=== PATIENT | male | born 1990 | race Caucasian/White ===

== ENCOUNTER 2017-03-05 16:06 | Emergency (ER) | payer OTHER ==
[~2017-03-05] VITALS: Ht 172.7 cm; Wt 84.0 kg
[~2017-03-05 16:06] MED LIST: RASPBERRY SYRUP 5 ML UDP PO SCH; VANCOMYCIN HCL 125 MG/2.5ML SOLN PO SCH
[2017-03-05 16:09] VITALS: TEMP 36.8; Ht 172.7 cm; Wt 84.0 kg
[2017-03-05] MEDS ORDERED: SODIUM CHLORIDE 0.9% 1000ML 1,000 ML IV STA ×2 (16:27→18:14)
[2017-03-05] MEDS ORDERED: OPTIRAY 320 IV PRN (16:30)
[2017-03-05] MEDS ORDERED: IBUP-103 PO (16:35)
[2017-03-05 17:04] LABS: BASO % 0.2 %; BASO ABS # 0.03 K/uL (0-0.2); COMPLETE YES; EOS % 0.8 %; HEMATOCRIT 49.7 % (42-52); IG% 0.6 %; LYMPH % 11.6 %; LYMPH ABS # 2.19 K/uL (1.2-3.4); MEAN CELL VOLUME 88.3 fL (80-100); MEAN CORPUSCULAR HEMOGLOBIN 31.4 pg (25-34); MEAN CORPUSCULAR HGB CONC 35.6 g/dl (32-36); MONO % 6.6 %; NEUT % 80.2 %; PLATELET COUNT 410 K/uL (130-400); RED BLOOD COUNT 5.63 M/uL (4.7-6.1)
[2017-03-05 17:22] LABS: BUN/CREATININE RATIO 6.8 (10-20); CREATININE 0.99 mg/dl (0.60-1.40); MAGNESIUM 2.3 mg/dl (1.8-2.4); POTASSIUM 3.7 mmol/L (3.5-5.1)
[2017-03-05] MEDS ORDERED: MoRPHine SULFATE 4 MG/ML 1 ML CARP\\VIAL IV STA (18:55)
[2017-03-05] MEDS ORDERED: ONDANSETRON INJ 2 MG/ML 2 ML VIAL IV STA (18:55)
--- NOTE | 2017-03-05 19:12 | DIAGNOSTIC IMAGING REPORT ---
ABDOMEN AND PELVIS CT WITH IV AND ORAL CONTRAST CT DOSE: 478.47 mGy.cm HISTORY: Right lower quadrant abdominal pain TECHNIQUE: Multiaxial CT images of the abdomen and pelvis were performed following the use of intravenous and oral contrast. COMPARISON STUDY: None. FINDINGS: The lung bases are clear. No fractures within the visualized osseous structures. No pneumoperitoneum. No pneumatosis. The liver, gallbladder, spleen, adrenal glands, pancreas, and kidneys are unremarkable. No retroperitoneal lymphadenopathy. Normal bladder. There is diffuse moderate thickening of the entire colon and rectum. There is associated mild pericolonic fat stranding. Normal appendix measuring 6 mm in diameter. No evidence for bowel obstruction. IMPRESSION: 1. Diffuse moderate thickening of the colon and rectum with associated pericolonic fat stranding. This is consistent with a nonspecific pancolitis likely due to an infectious or inflammatory process. 2. No evidence for bowel obstruction. 3. No evidence for acute appendicitis. Electronically signed by: Lon Redman M.D. 03/05/2017 7:11 PM Dictated Date/Time: 03/05/2017 7:06 PM
--- NOTE | 2017-03-05 21:06 | EMERGENCY ROOM VISIT NOTE ---
History First contact with patient: 16:12 Chief Complaint: CONSTIPATION Stated Complaint: CONSTIPATION 2 WEEKS, ABDOMINAL PAIN Nursing Triage Summary: see triage note History of Present Illness The patient is a 26 year old male who presents to the Emergency Room via private vehicle accompanied by sister with complaints of "constipation". The patient states that he has had regular bowel movements over the past 1-2 weeks. He states that he has had diarrhea, but still feels constipated. There is been associated nausea and abdominal pain. He states that he was seen today by [employer] [employer], who sent him here for further evaluation and management. The patient states that last night, he ate pizza and then fell constipated, noting that he felt a pain in the left lower quadrant. He states that he has felt this since he had his was obtained removed. He been taking pain medication , as well as amoxicillin. He has taken amoxicillin for approximately 3-4 weeks. He finished his last dose last week. He notes that each bowel movement yields a minimal amount, and most of it is diarrhea. Once the left lower quadrant noting the pain is 3-4/10. Movement makes the pain worse, but if he sits down it often will go away. His pain was an 8-9/10 earlier today. There is associated nausea. A minimal blood in the stool. He denies any chest pain, shortness of breath, vomiting. Review of Systems A complete 10-point Review of Systems was discussed with the patient, with pertinent positives and negatives listed in the History of Present Illness. All remaining Review of Systems questions can be considered negative unless otherwise specified. Past Medical/Surgical History [place] teeth removal Family History Heart disease, high blood pressure, cancer Social History Smoking Status: Current Every Day Smoker Social History: Patient lives at home with mother. Current/Historical Medications Scheduled Ibuprofen Tab (Advil), 200-600 MG PO Q4H Vancomycin HCl (Vancomycin HCl), 125 MG PO Q6 Allergies Coded Allergies: No Known Allergies (Unverified , 03/05/17) Physical Exam Vital Signs Date Time Temp Pulse Resp B/P Pulse Ox O2 Delivery O2 Flow Rate FiO2 03/05/17 21:46 100 18 163/81 98 Room Air 03/05/17 19:12 98 18 144/83 98 Room Air 03/05/17 16:09 36.8 123 16 128/86 95 Room Air Physical Exam VITAL SIGNS - Vital signs and nursing notes were reviewed. Patient is afebrile , normotensive, tachycardic at a rate of 123 bpm, and is saturating on room air 95%. GENERAL -26-year-old male appearing his stated age who is in no acute distress. Communicates well with provider and answers questions appropriately. SKIN - Without rashes. No petechial rashes. HEAD - NC/AT. EYES - Sclera anicteric. Palpebral conjunctiva pink and moist with no injection noted. MOUTH/OROPHARYNX - Without perioral cyanosis. LUNGS - Chest wall symmetric without accessory muscle use, intercostals retractions, or central cyanosis. Normal vesicular breath sounds CTA B/L. No wheezes, rales, or rhonchi appreciated. CARDIAC - RRR with S1/S2. No murmur, rubs, or gallops appreciated. ABDOMEN - Abdominal contour without pulsations or visible masses. BS normoactive all four quadrants. No tenderness, palpable masses, hepatosplenomegaly, or ascites noted. EXTREMITIES - No clubbing or peripheral cyanosis. No pretibial edema present. +5 /5 strength noted in UE/LE bilaterally. NEUROLOGIC - Cranial nerves II through XII grossly intact. Patellar reflexes +2/ 4. PSYCH - Pt is very pleasant and interacts well with examiner. Medical Decision & Procedures ER Provider Diagnostic Interpretation: ABDOMEN AND PELVIS CT WITH IV AND ORAL CONTRAST CT DOSE: 478.47 mGy.cm HISTORY: Right lower quadrant abdominal pain TECHNIQUE: Multiaxial CT images of the abdomen and pelvis were performed following the use of intravenous and oral contrast. COMPARISON STUDY: None. FINDINGS: The lung bases are clear. No fractures within the visualized osseous structures. No pneumoperitoneum. No pneumatosis. The liver, gallbladder, spleen, adrenal glands, pancreas, and kidneys are unremarkable. No retroperitoneal lymphadenopathy. Normal bladder. There is diffuse moderate thickening of the entire colon and rectum. There is associated mild pericolonic fat stranding. Normal appendix measuring 6 mm in diameter. No evidence for bowel obstruction. IMPRESSION: 1. Diffuse moderate thickening of the colon and rectum with associated pericolonic fat stranding. This is consistent with a nonspecific pancolitis likely due to an infectious or inflammatory process. 2. No evidence for bowel obstruction. 3. No evidence for acute appendicitis. Electronically signed by: Lon Redman M.D. 03/05/2017 7:11 PM Dictated Date/Time: 03/05/2017 7:06 PM Laboratory Results 03/05/17 16:50 Red Blood Count 5.63, Mean Corpuscular Volume 88.3, Mean Corpuscular Hemoglobin 31.4, Mean Corpuscular Hemoglobin Concent 35.6, Mean Platelet Volume 9.0, Neutrophils (%) (Auto) 80.2, Lymphocytes (%) (Auto) 11.6, Monocytes (%) (Auto) 6.6, Eosinophils (%) (Auto) 0.8, Basophils (%) (Auto) 0.2, Neutrophils # (Auto) 15.15, Lymphocytes # (Auto) 2.19, Monocytes # (Auto) 1.25, Eosinophils # (Auto) 0.16, Basophils # (Auto) 0.03 03/05/17 16:50 Test 03/05/17 16:50 03/05/17 18:30 03/05/17 21:42 White Blood Count 18.90 K/uL (4.8-10.8) Red Blood Count 5.63 M/uL (4.7-6.1) Hemoglobin 17.7 g/dL (14.0-18.0) Hematocrit 49.7 % (42-52) Mean Corpuscular Volume 88.3 fL (80-100) Mean Corpuscular Hemoglobin 31.4 pg (25-34) Mean Corpuscular Hemoglobin Concent 35.6 g/dl (32-36) Platelet Count 410 K/uL (130-400) Mean Platelet Volume 9.0 fL (7.4-10.4) Neutrophils (%) (Auto) 80.2 % Lymphocytes (%) (Auto) 11.6 % Monocytes (%) (Auto) 6.6 % Eosinophils (%) (Auto) 0.8 % Basophils (%) (Auto) 0.2 % Neutrophils # (Auto) 15.15 K/uL (1.4-6.5) Lymphocytes # (Auto) 2.19 K/uL (1.2-3.4) Monocytes # (Auto) 1.25 K/uL (0.11-0.59) Eosinophils # (Auto) 0.16 K/uL (0-0.5) Basophils # (Auto) 0.03 K/uL (0-0.2) RDW Standard Deviation 43.1 fL (36.4-46.3) RDW Coefficient of Variation 13.3 % (11.5-14.5) Immature Granulocyte % (Auto) 0.6 % Immature Granulocyte # (Auto) 0.12 K/uL (0.00-0.02) Anion Gap 6.0 mmol/L (3-11) Est Creatinine Clear Calc Drug Dose 120.4 ml/min Estimated GFR () 122.2 Estimated GFR (Non- 105.4 BUN/Creatinine Ratio 6.8 (10-20) Calcium Level 9.0 mg/dl (8.5-10.1) Magnesium Level 2.3 mg/dl (1.8-2.4) Total Bilirubin 0.4 mg/dl (0.2-1) Aspartate Amino Transf (AST/SGOT) 9 U/L (15-37) Alanine Aminotransferase (ALT/SGPT) 19 U/L (12-78) Alkaline Phosphatase 87 U/L (45-117) Total Protein 7.3 gm/dl (6.4-8.2) Albumin 3.6 gm/dl (3.4-5.0) Globulin 3.7 gm/dl (2.5-4.0) Albumin/Globulin Ratio 1.0 (0.9-2) Lipase 89 U/L (73-393) Date/Time Source Procedure Growth Status 03/05/17 18:30 Stool C.difficile Toxin B Gene (PCR) - Final Positive for C. difficile toxin B gene Complete Medications Administered Medications (Trade) Dose Ordered Sig/Jesus Route Start Time Stop Time Status Last Admin Dose Admin Sodium Chloride 1,000 ml @ 999 mls/hr Q1H1M STAT IV 03/05/17 16:27 03/05/17 17:27 DC 03/05/17 16:46 999 MLS/HR Sodium Chloride (Nss 1000ml) 1,000 ml @ 200 mls/hr Q5H STAT IV 03/05/17 18:14 03/05/17 23:13 03/05/17 18:14 200 MLS/HR Morphine Sulfate (MoRPHine SULFATE INJ) 4 mg NOW STAT IV 03/05/17 18:55 03/05/17 18:56 DC 03/05/17 19:17 4 MG Ondansetron HCl (Zofran Inj) 4 mg NOW STAT IV 03/05/17 18:55 03/05/17 18:56 DC 03/05/17 19:17 4 MG Medical Decision Patient was seen and evaluated as above. He presents to us after taking a long duration of amoxicillin, with abdominal pain and diarrhea. Subjective and objective examination is concerning for C. difficile. IV access was initiated, and the above workup was performed. He was hydrated with 1 L normal saline bolus. His tachycardia persisted, but his rate did improve to rate around 100. There is leukocytosis around 18,000. No anemia. Patient declined rectal exam. Platelet count is high at 410. Sodium and potassium are within normal limits. Chloride is high at 108. AST is low at 9. C. difficile toxin B Gene is positive. Stool does smell consistent with that of C. difficile. CT scan was obtained secondary to the patient's amount of pain. Pancolitis noted. He was hydrated with 1 more liter of saline. Thus far he has been nothing by mouth. He was given 4 mg of morphine and 4 mg of Zofran for his pain. I did discuss the case with my attending, and there is concern that the patient has not done well with by mouth intake despite his attempts. Patient has attempted to drink a large amount of water but still appears dehydrated with his vital signs, and during his stay he has had use the bathroom for 5 times. I am concerned that his water loss . Diarrhea is greater than that of by mouth intake. For this reason, hospitalist was consult, who will further evaluate the patient for management. Please refer to further documentation regarding his stay. I was notified by the hospitalist that the patient verbalized he would like to go home. The patient states that family is coming in this weekend, and he is feeling better. I informed him that this is a serious diagnosis, and could lead to . He verbalizes understanding, and will be discharged home with vancomycin oral solution. He'll be given the first dose here, which is 125 mg of oral vancomycin solution followed by 500 mg home pack. A prescription for the remainder was sent to the pharmacy for a total of 10 days. He is to return with worsening. He was educated upon worrisome symptoms which to return, had questions prior to discharge, and was discharged home in good condition with his sister. In evaluation treatment this patient the following differential diagnoses entertained: Diverticulitis, C. difficile, appendicitis, IBS, among others. Impression Primary Impression: C. difficile colitis Departure Information Dispostion Home / Self-Care Condition GOOD Prescriptions Vancomycin HCl (Vancomycin HCl) 125 Mg/2.5 Ml Susp 125 MG PO Q6, #90 ML Prov: Devon Ceja PA-C 03/05/17 Referrals No Doctor, Assigned (PCP) Patient Instructions Clostridium Difficile Infec, My [facility] Additional Instructions You have been treated in the Emergency Department your Abdominal Pain and were found to have C. difficile associated diarrhea. This is a serious, potentially life-threatening infection of your GI tract system which will require strong antibiotics. For this reason you have been prescribed vancomycin, 125 mg by mouth every 6 hours for 10 days. You will be given the first dose here, and sent home with the first 24 hour supply. The remainder is in written prescription form which will need to be filled at a pharmacy of your choice. Please keep in mind that one extra dose was provided with the prescription sent to the pharmacy. The full 10 days should actually be with one dose left in the prescription bottle. It is recommended that you take probiotic yogurt to help colonize your GI tract. For pain control, you can use the following [id number] medicines (if >12 yo): - Regular strength (325mg/tab) Tylenol (acetaminophen) 2 tabs every 4-6 hours as needed. Do not exceed 12 tablets in a 24 hour period. Avoid taking more than 4 grams (4000 mg) of Tylenol per day. This includes any other sources of acetaminophen you may take on a regular basis. - Regular strength (200 mg/tab) Advil (ibuprofen) 1-2 tabs every 4-6 hours as needed. Do not exceed a dose of 3200 mg per day. Drink plenty of water and stay well hydrated. As with any trip to the Emergency Department, you should follow-up with your Primary Care Provider from today's visit. Return to the emergency department if your symptoms persist despite treatment plan outlined above or if the following symptoms occur: increased fevers, chills , worsening nausea/vomiting, blood in your stool or urine. Please return to the emergency department with any new/concerning symptoms.
[2017-03-05] MEDS ORDERED: NSS + 20MEQ KCL 1000ML 1,000 ML IV SCH (21:45)
[2017-03-05] MEDS ORDERED: VANCOMYCIN HCL 125 MG/2.5ML SOLN PO STA ×2 (22:02)
[2017-03-05] MEDS ORDERED: VNCSEMP PO (22:11)
[2017-03-05] MEDS ORDERED: ONDANSETRON HOME PACK 4MG OD TAB PO STA (22:14)
[2017-03-05] MEDS ORDERED: VANCOMYCIN HCL 125 MG/2.5ML SOLN PO ONE (22:15)
[2017-03-05] MEDS ORDERED: RASPBERRY SYRUP 5 ML UDP PO ONE (22:15)
--- NOTE | 2017-03-05 22:30 | History and Physical ---
History & Physical Date & Time of Service: March 05, 2017 at 21:57 Chief Complaint: Constipation 2 Weeks, Abdominal Pain Primary Care Physician: No Doctor, Assigned History of Present Illness Source: patient, family, hospital records 26 year old male with no known past medical history presenting with diarrhea Patient report at least 2 weeks of Amoxicillin early February for infected tooth. He was feeling well until yesterday when he started to have generalized abdominal cramping associated with nausea after eating Pizza. Today pain increased prompting consult to the ER. C diff positive CT abdomen: colitis WBC 18k On my exam, patient is alert, oriented, appears comfortable. State pain has improved and would like to have some food. Had about 2 BMs today, last diarrhea 4 hours ago. Denies dizziness, chest pain, dyspnea, palpitations, no active nausea on my exam. Family History Father side- heart disease. Mother side- Cancer Social History Smoking Status: Current Every Day Smoker Alcohol Use: socially Marital Status: single Housing status: lives with family Occupational Status: student Allergies Coded Allergies: No Known Allergies (Unverified , 03/05/17) Home Medications Scheduled Ibuprofen Tab (Advil), 200-600 MG PO Q4H Vancomycin HCl (Vancomycin HCl), 125 MG PO Q6 Review of Systems Constitutional- no fever; no weight loss Eyes- no acute visual changes ENT- no sinus drainage; no pharyngitis Pulmonary- no cough, no wheezing, no shortness of breath Cardiac- no chest pain, no palpitations, no orthopnea, no dependent edema GI- (+) as noted above, no hematochezia - no dysuria, no hematuria Musculoskeletal- no arthralgias, no myalgias Derm- no rashes, no new skin lesions, no changing skin lesions Hematologic- no unusual bruising, no unusual bleeding Lymphatics- no adenopathy Endocrine- no polyuria or polydipsia; no heat or cold intolerance Neuro- no headaches, no focal neurologic symptoms Psych- no anxiety, no depression Physical Exam Vital Signs Date Time Temp Pulse Resp B/P Pulse Ox O2 Delivery O2 Flow Rate FiO2 03/05/17 21:46 100 18 163/81 98 Room Air 03/05/17 19:12 98 18 144/83 98 Room Air 03/05/17 16:09 36.8 123 16 128/86 95 Room Air General Appearance: WD/WN, no apparent distress Head: normocephalic, atraumatic Eyes: normal inspection, EOMI, sclerae normal ENT: normal ENT inspection, hearing grossly normal, pharynx normal Neck: supple, no adenopathy, thyroid normal, no JVD Respiratory/Chest: chest non-tender, lungs clear, normal breath sounds, no respiratory distress, no accessory muscle use Cardiovascular: regular rate, rhythm, no edema, no JVD, no murmur Abdomen/GI: soft, no organomegaly, + pertinent finding (hyperactive BS, mild tenderness) Back: normal inspection, no CVA tenderness Extremities/Musculoskelatal: normal inspection, no calf tenderness, no pedal edema Neurologic/Psych: no motor/sensory deficits, alert, normal mood/affect, oriented x 3 Skin: normal color, warm/dry, no rash Lymphatic: no adenopathy Diagnostics Laboratory Results Results Past 24 Hours Test 03/05/17 16:50 03/05/17 18:30 03/05/17 21:42 Range/Units White Blood Count 18.90 4.8-10.8 K/uL Red Blood Count 5.63 4.7-6.1 M/uL Hemoglobin 17.7 14.0-18.0 g/dL Hematocrit 49.7 42-52 % Mean Corpuscular Volume 88.3 80-100 fL Mean Corpuscular Hemoglobin 31.4 25-34 pg Mean Corpuscular Hemoglobin Concent 35.6 32-36 g/dl Platelet Count 410 130-400 K/uL Mean Platelet Volume 9.0 7.4-10.4 fL Neutrophils (%) (Auto) 80.2 % Lymphocytes (%) (Auto) 11.6 % Monocytes (%) (Auto) 6.6 % Eosinophils (%) (Auto) 0.8 % Basophils (%) (Auto) 0.2 % Neutrophils # (Auto) 15.15 1.4-6.5 K/uL Lymphocytes # (Auto) 2.19 1.2-3.4 K/uL Monocytes # (Auto) 1.25 0.11-0.59 K/uL Eosinophils # (Auto) 0.16 0-0.5 K/uL Basophils # (Auto) 0.03 0-0.2 K/uL RDW Standard Deviation 43.1 36.4-46.3 fL RDW Coefficient of Variation 13.3 11.5-14.5 % Immature Granulocyte % (Auto) 0.6 % Immature Granulocyte # (Auto) 0.12 0.00-0.02 K/uL Sodium Level 142 136-145 mmol/L Potassium Level 3.7 3.5-5.1 mmol/L Chloride Level 108 98-107 mmol/L Carbon Dioxide Level 28 21-32 mmol/L Anion Gap 6.0 3-11 mmol/L Blood Urea Nitrogen 7 7-18 mg/dl Creatinine 0.99 0.60-1.40 mg/dl Est Creatinine Clear Calc Drug Dose 120.4 ml/min Estimated GFR () 122.2 Estimated GFR (Non- 105.4 BUN/Creatinine Ratio 6.8 10-20 Random Glucose 108 70-99 mg/dl Calcium Level 9.0 8.5-10.1 mg/dl Magnesium Level 2.3 1.8-2.4 mg/dl Total Bilirubin 0.4 0.2-1 mg/dl Aspartate Amino Transf (AST/SGOT) 9 15-37 U/L Alanine Aminotransferase (ALT/SGPT) 19 12-78 U/L Alkaline Phosphatase 87 45-117 U/L Total Protein 7.3 6.4-8.2 gm/dl Albumin 3.6 3.4-5.0 gm/dl Globulin 3.7 2.5-4.0 gm/dl Albumin/Globulin Ratio 1.0 0.9-2 Lipase 89 73-393 U/L Microbiology Results 03/05/17 C.difficile Toxin B Gene (PCR) - Final, Complete Positive for C. difficile toxin B gene 03/05/17 Shiga Toxin Test, Received Pending 03/05/17 Stool Culture, Received Pending Diagnostic Radiology ABDOMEN AND PELVIS CT WITH IV AND ORAL CONTRAST CT DOSE: 478.47 mGy.cm HISTORY: Right lower quadrant abdominal pain TECHNIQUE: Multiaxial CT images of the abdomen and pelvis were performed following the use of intravenous and oral contrast. COMPARISON STUDY: None. FINDINGS: The lung bases are clear. No fractures within the visualized osseous structures. No pneumoperitoneum. No pneumatosis. The liver, gallbladder, spleen, adrenal glands, pancreas, and kidneys are unremarkable. No retroperitoneal lymphadenopathy. Normal bladder. There is diffuse moderate thickening of the entire colon and rectum. There is associated mild pericolonic fat stranding. Normal appendix measuring 6 mm in diameter. No evidence for bowel obstruction. IMPRESSION: 1. Diffuse moderate thickening of the colon and rectum with associated pericolonic fat stranding. This is consistent with a nonspecific pancolitis likely due to an infectious or inflammatory process. 2. No evidence for bowel obstruction. 3. No evidence for acute appendicitis. Electronically signed by: Lon Redman M.D. 03/05/2017 7:11 PM Impression Assessment and Plan 26 year old male with no known past medical history presenting with diarrhea. SEVERE C DIFF COLITIS - Vancomycin 125mg PO QID x 10 days IV fluids PRN analgesic, antiemetics - discussed with patient and sister at length re: plan of care they are agreeable and comfortable with plan of care all questions answered - RN informed me that patient prefers to go home re evaluated patient, states he is feeling improved and would rather rest at home states he does not have nausea and will be able to take oral meds at home advised to increase fluid intake, take antibiotics as directed return to ER immediately if with worsening of symptoms, poor oral intake , weakness, etc he and sister verbalized understanding offered to arrange PCP follow up this week and they also agreed Jeff Benton MD VTE Prophylaxis VTE Risk Assessment Done? Y/N: Yes Risk Level: Moderate
[2017-03-05 22:37] VITALS: BP 158/70; PULSE 101; O2SAT 97
[2017-03-08 18:41] LABS: O&P GIARDIA AG NOT DETECTED (NOT DETECTED)
== END 2017-03-05 22:41 | disposition home or self-care (01) ==
LOC: ENRESERVDT → ENRESERVTM → CANRESERV → C.EDB 16:07 → CANBEDREQ 03-06 02:10
DX: A04.7 Enterocolitis due to Clostridium difficile (principal); Z80.9 Family history of malignant neoplasm, unspecified; Z82.49 Family history of ischemic heart disease and other diseases of the circulatory system; F17.210 Nicotine dependence, cigarettes, uncomplicated